=== PATIENT | female | born 1990 | race Caucasian/White ===

== ENCOUNTER 2017-08-14 21:27 | Emergency (ER) | payer OTHER ==
[2017-08-14 21:37] VITALS: RESP 20
[2017-08-14] MEDS ORDERED: NS 1,000 ML IV ONE (22:12)
[2017-08-14] MEDS ORDERED: ONDANSETRON 4 MG/2 ML VIAL IVP ONE (22:12)
[2017-08-14 22:36] LABS: PLATELET COUNT 272 10^3/uL (150-400)
--- NOTE | 2017-08-14 22:56 | EDPHY ---
H & P Time Seen by Provider: 08/14/17 21:56 HPI/ROS: CHIEF COMPLAINT: Rash, vomiting HISTORY OF PRESENT ILLNESS: 27-year-old female who is approximately 16 weeks presents to the emergency department complaining of diffuse rash, itching and vomiting. The patient was concerned that she was having allergic reaction. She took 50 mg of Benadryl at home this evening and then vomited within about 10 min and then took another 25 mg of oral Benadryl. She was having some mild cramping in her lower abdomen which is now resolved. No vaginal discharge or bleeding. She denies urinary symptoms or back pain. She has had problems with morning sickness and nausea vomiting associated with . She did take some medication at home for her nausea. The patient had similar symptoms about a year ago where she developed itchiness in her palm size and in her groin area and developed a pruritic rash which resolved on its own. She is not sure of the cause. She denies difficulty breathing or swallowing. Denies swollen uvula or dysphagia. Denies rash currently. The patient is concerned that she may be dehydrated. She called her OBGYN on-call who advised that she come to the emergency department for evaluation. REVIEW OF SYSTEMS: Constitutional: No fever, no chills. Eyes: No double or blurry vision. ENT: No sore throat. Respiratory: No cough, no shortness of breath. Cardiac: No chest pain. Gastrointestinal: Vomiting as above. Diarrhea. No abdominal pain. Genitourinary: No dysuria. Musculoskeletal: No neck or back pain. Skin: Rash as above Neurological: No headache. Past Medical/Surgical History: 2 para 1 AB 0 Social History: Smoking Status: Never smoked Physical Exam: General Appearance: Alert, no distress. No apparent distress. 93% on room air. Eyes: Pupils equal and round. Extraocular motions are all intact. ENT: Mouth: Mucous membranes moist. Respiratory: No wheezing, rhonchi, or rales, lungs are clear to auscultation. Cardiovascular: Regular rate and rhythm. Gastrointestinal: Abdomen is soft and nontender, no masses, no rebound or guarding, bowel sounds normal. No CVA tenderness bilaterally. Neurological: Alert and oriented x 3, cranial nerves II through XII grossly intact Skin: Warm and dry, no rashes. Musculoskeletal: Nontender to palpate along the cervical, thoracic or lumbar spine. Neck is supple. Extremities: Full range of motion and no peripheral edema. Psychiatric: Patient is oriented X 3, there is no agitation. Constitutional: Initial Vital Signs Temperature (C) 36.5 C 08/14/17 21:32 Heart Rate 118 H 08/14/17 21:32 Respiratory Rate 20 08/14/17 21:32 Blood Pressure 118/83 H 08/14/17 21:32 O2 Sat (%) 93 08/14/17 21:32 O2 Delivery Mode Room Air Allergies/Adverse Reactions: No Known Allergies Allergy (Unverified 08/17/15 11:52) Home Medications: Medication Instructions Recorded Multivitamin [Multi-Day Vitamins] 1 each PO DAILY 08/17/15 Medical Decision Making ED Course/Re-evaluation: Patient requesting IV fluids. She had an IV established and was given IV normal saline as well as 4 mg of Zofran IV. Patient is in no apparent distress. No respiratory distress. Laboratory studies reveal elevated white blood cell count of nearly 24,000. Patient does not appear toxic or ill. The patient was seen in the emergency department 2 years ago with similar complaints of vomiting and diarrhea. She was also to the time. She had an elevated white blood cell count at that time of 23,000. Patient states that the symptoms today feel very similar as 2 years ago. Patient was unable to provide a urine specimen. She has never had a urinary tract infection before. She does not think that she has urinary tract infection today. The patient was feeling better. She was monitored throughout her stay in the emergency department. heart tones were strong at 150. The case was discussed with Dr. Noe Covarrubias, secondary supervising physician , who did not directly evaluate the patient but agrees with treatment and plan. The patient understands that it is not clear why she has an elevated white blood cell count. She should have close follow-up with her OBGYN. She has no abdominal pain. I do not think an ultrasound is indicated. She has no respiratory complaints. I do not think chest x-rays indicated. She was unable to provide a urine specimen and does not want to wait to provide one. She requested to be discharged home. She agreed to have close follow-up with her OBGYN. She will return to the emergency department if she develops any change in symptoms, fever, or if she feels worse in any way. Differential Diagnosis: Including but not limited to gastroenteritis, dehydration, electrolyte abnormality, urinary tract infection, pyelonephritis, pneumonia, influenza, viral upper respiratory infection, allergic reaction - Data Points Laboratory Results: Laboratory Results 08/14/17 22:22 08/14/17 22:22 08/14/17 08/14/17 22:22 22:22 WBC 23.48 10^3/uL H 10^3/uL (3.80-9.50) RBC 4.86 10^6/uL 10^6/uL (4.18-5.33) Hgb 15.1 g/dL g/dL (12.6-16.3) Hct 43.4 % % (38.0-47.0) MCV 89.3 fL fL (81.5-99.8) MCH 31.1 pg pg (27.9-34.1) MCHC 34.8 g/dL g/dL (32.4-36.7) RDW 12.6 % % (11.5-15.2) Plt Count 272 10^3/uL 10^3/uL (150-400) MPV 8.9 fL fL (8.7-11.7) Neut % (Auto) 88.9 % H % (39.3-74.2) Lymph % (Auto) 7.9 % L % (15.0-45.0) [place] % (Auto) 2.3 % L % (4.5-13.0) Eos % (Auto) 0.0 % L % (0.6-7.6) Baso % (Auto) 0.2 % L % (0.3-1.7) Nucleat RBC Rel Count 0.0 % % (0.0-0.2) Absolute Neuts (auto) 20.87 10^3/uL H 10^3/uL (1.70-6.50) Absolute Lymphs (auto) 1.86 10^3/uL 10^3/uL (1.00-3.00) Absolute Monos (auto) 0.54 10^3/uL 10^3/uL (0.30-0.80) Absolute Eos (auto) 0.01 10^3/uL L 10^3/uL (0.03-0.40) Absolute Basos (auto) 0.04 10^3/uL 10^3/uL (0.02-0.10) Absolute Nucleated RBC 0.00 10^3/uL 10^3/uL (0-0.01) Immature Gran % 0.7 % % (0.0-1.1) Immature Gran # 0.16 10^3/uL H 10^3/uL (0.00-0.10) Sodium 137 mEq/L mEq/L (135-145) Potassium 3.6 mEq/L mEq/L (3.5-5.2) Chloride 103 mEq/L mEq/L (97-110) Carbon Dioxide 21 mEq/l L mEq/l (22-31) Anion Gap 13 mEq/L mEq/L (8-16) BUN 17 mg/dL mg/dL (7-23) Creatinine 0.7 mg/dL mg/dL (0.6-1.0) Estimated GFR > 60 Glucose 114 mg/dL H mg/dL (70-100) Calcium 9.9 mg/dL mg/dL (8.5-10.4) Medications Given: Discontinued Medications Sodium Chloride (Ns) 1,000 mls @ 0 mls/hr IV ONCE ONE PRN Reason: Wide Open Stop: 08/14/17 22:13 Last Admin: 08/14/17 22:21 Dose: 1,000 mls Ondansetron HCl (Zofran) 4 mg IVP EDNOW ONE Stop: 08/14/17 22:13 Last Admin: 08/14/17 22:21 Dose: 4 mg Departure - Departure Disposition: Home, Routine, Self-Care Clinical Impression: Gastroenteritis, Dehydration Condition: Good Instructions: Dehydration (ED), Gastroenteritis (ED) Additional Instructions: Clear liquids and slowly advance diet as tolerated. Return to the emergency department if you develop fever, recurring vomiting, back pain, abdominal pain, vaginal bleeding or discharge, or if you feel worse in any way. Follow-up with your OBGYN this week to recheck.
[2017-08-14 23:46] VITALS: BP 115/71; PULSE 90; TEMP 98.2; O2SAT 97
== END 2017-08-14 23:47 | disposition home or self-care (01) ==
DX: O99.612 Diseases of the digestive system complicating pregnancy, second trimester (principal); K52.9 Noninfective gastroenteritis and colitis, unspecified; E86.0 Dehydration; O26.812 Pregnancy related exhaustion and fatigue, second trimester; Z3A.16 16 weeks gestation of pregnancy
CPT/HCPCS: 96374; J2405

== ENCOUNTER → 2017-09-09 | Outpatient (CLI) | payer OTHER | LOC: FIMAGING 11:40 | PROVIDERS: ATTEND Obstetrics & Gynecology | DX: Z34.92 Encounter for supervision of normal pregnancy, unspecified, second trimester (principal); Z3A.19 19 weeks gestation of pregnancy; Z87.59 Personal history of other complications of pregnancy, childbirth and the puerperium; Z82.49 Family history of ischemic heart disease and other diseases of the circulatory system ==

== ENCOUNTER → 2017-10-12 | Outpatient (CLI) | payer OTHER | LOC: FIMAGING 11:06 | PROVIDERS: ATTEND Obstetrics & Gynecology | DX: Z34.92 Encounter for supervision of normal pregnancy, unspecified, second trimester (principal); Z3A.24 24 weeks gestation of pregnancy; Z82.49 Family history of ischemic heart disease and other diseases of the circulatory system ==

== ENCOUNTER → 2017-11-18 | Outpatient (CLI) | payer OTHER | LOC: FIMAGING 09:36 | PROVIDERS: ATTEND Obstetrics & Gynecology | DX: O09.293 Supervision of pregnancy with other poor reproductive or obstetric history, third trimester (principal); Z3A.29 29 weeks gestation of pregnancy ==

== ENCOUNTER → 2017-12-27 | Outpatient (CLI) | payer OTHER | LOC: FIMAGING 09:13 | PROVIDERS: ATTEND Obstetrics & Gynecology | DX: Z34.03 Encounter for supervision of normal first pregnancy, third trimester (principal); Z3A.35 35 weeks gestation of pregnancy ==